=== PATIENT | female | born 1995 | race Two or more races ===

== ENCOUNTER 2020-06-23 19:30 | Emergency (ER) | payer OTHER ==
[2020-06-23 19:44] VITALS: BP 130/88
--- NOTE | 2020-06-23 20:35 | ED Physician Documentation ---
History of Present Illness - Stated complaint Stated Complaint: RT EAR BLEEDING - Chief complaint Chief Complaint: Heent - Additonal information Additional information: 24-year-old female presents to the emergency department with acute right ear pain and bleeding. 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 Shortly after cleaning her ears this afternoon she did note that there was some bleeding and minor pain. No loss of hearing or tinnitus. No recent cough cold or congestion. No history of recurrent ear infections. Patient has not been swimming recently Review of Systems Constitutional: reports: Reviewed and negative Eyes: reports: Reviewed and negative Ears: reports: Ear pain, Drainage/discharge Nose: reports: Reviewed and negative Throat: reports: Reviewed and negative Cardiac: reports: Reviewed and negative Respiratory: reports: Reviewed and negative GI: reports: Reviewed and negative PD PAST MEDICAL HISTORY - Past Medical History Past Medical History: No Cardiovascular: None Respiratory: None Neuro: None GI: None INSPECTING ENGINEER: None : None HEENT: None Psych: None Musculoskeletal: None Derm: None - Past Surgical History Past Surgical History: No - Present Medications Home Medications: Ambulatory Orders Medication Instructions Recorded Confirmed Ofloxacin 5 ml OP BID #1 bottle 06/23/20 - Allergies Allergies/Adverse Reactions: Allergies Allergy/AdvReac Type Severity Reaction Status Date / Time No Known Drug Allergies Allergy Verified 06/23/20 19:44 - Social History Does the pt smoke?: No Smoking Status: Never smoker Does the pt drink ETOH?: No Does the pt have substance abuse?: No - Immunizations Immunizations are current?: Yes - POLST Patient has POLST: No PD ED PE NORMAL - General General: Alert and oriented X 3, No acute distress - HEENT HEENT: Atraumatic, EOMI, Moist mucous membranes, Pharynx benign, Dentition benign. No: Ears normal (right external auditory canal with small abrasion and superficial bleeding seen. There is no cerumen or abnormal discharge. Tympanic membrane intact without effusion. Exam of left TM and EAC unremarkable.) - Neck Neck: Supple, no meningeal sign, No adenopathy - Cardiac Cardiac: RRR, No murmur - Respiratory Respiratory: No respiratory distress Results - Vitals Vitals: Vital Signs - 24 hr 06/23/20 19:35 Temperature 37.1 C Heart Rate 93 Respiratory 18 Rate Blood Pressure 130/88 H O2 Saturation 100 Oxygen O2 Source Room air PD MEDICAL DECISION MAKING - ED course Complexity details: d/w patient ED course: 24 year-old female presents to the emergency department with acute right ear pain and bleeding after using a Q-tip to clean out debris that she Q accumulates with work. On exam she has a superficial abrasion of the ear canal but no mucopurulent drainage the tympanic membrane is intact. Will prescribe antibiotic drops to prevent infection. Patient advised to discontinue the use of Q-tips in her ears as she will develop recurrent abrasions and infections with further use. No signs of malignant otitis externa. Follow-up with primary care provider Departure - Departure Disposition: Home, Self Care Clinical Impression: Ear canal abrasion Qualifiers: Encounter type: initial encounter Laterality: right Qualified Code(s): S00.411A - Abrasion of right ear, initial encounter Condition: Stable Record reviewed to determine appropriate education?: Yes Instructions: ED Otitis Externa Prescriptions: Ofloxacin 5 ml OP BID #1 bottle Comments: You have an abrasion of your ear canal. Please stop using the Q-tips. Apply the antibiotic drops (5 drops in the ear canal) twice daily for the next week. If you develop increasing pain have milky drainage fevers or ear swelling return for a second look
== END 2020-06-23 20:47 | disposition home or self-care (01) ==
LOC: ED 19:30
DX: S00.411A Abrasion of right ear, initial encounter (principal); X58.XXXA Exposure to other specified factors, initial encounter; Y93.E8 Activity, other personal hygiene; Y92.002 Bathroom of unspecified non-institutional (private) residence as the place of occurrence of the external cause
CPT/HCPCS: 99282; 99284